=== PATIENT | female | born 1960 | race Caucasian/White ===

== ENCOUNTER 2017-08-08 05:25 | Emergency (ER) | payer BC, OTHER ==
[~2017-08-08] VITALS: Ht 157.5 cm; Wt 62.6 kg
[2017-08-08] MEDS ORDERED: proparacaine 0.5% ophthalmic drops 15ml EACHEYE ONE (06:30)
[2017-08-08] MEDS ORDERED: benoxinate/fluorescein ophth drops 5ml bottle EACHEYE ONE (07:10)
[2017-08-08] MEDS ORDERED: ERYT1OIN6 EACHEYE (07:23)
[2017-08-08] MEDS ORDERED: ibuprofen tablet 400 MG TABLET PO ONE (07:25)
[2017-08-08] MEDS ORDERED: erythromycin ophthalmic ointment 1gm tube EACHEYE ONE (07:25)
[2017-08-08 08:03] VITALS: BP 120/58
== END 2017-08-08 08:07 | disposition home or self-care (01) ==
LOC: ER 05:27
DX: H20.9 Unspecified iridocyclitis (principal); Z88.5 Allergy status to narcotic agent; Z88.0 Allergy status to penicillin
CPT/HCPCS: 99283

== ENCOUNTER 2023-10-23 15:12 | Emergency (ER) | payer BC, MEDICAID ==
[~2023-10-23] VITALS: Ht 157.5 cm; Wt 84.6 kg
[~2023-10-23 15:12] MED LIST: ORPH100T4 PO
[2023-10-23 16:05] LABS: BASOPHILS # (AUTO) 0.1 X10'3 (0-0.2); BASOPHILS % (AUTO) 0.9 % (0-1); EOSINOPHILS # (AUTO) 0.1 X10'3 (0-0.9); HEMATOCRIT 41.7 % (35.0-45.0); HEMOGLOBIN 14.2 g/dl (12.0-16.0); LYMPHOCYTES # (AUTO) 1.1 X10'3 (1.1-4.8); MEAN CORPUSCULAR HEMOGLOBIN 29.5 PG (27.0-31.0); MEAN CORPUSCULAR HGB CONC 34.2 g/dL (33.0-36.5); MEAN CORPUSCULAR VOLUME 86.2 FL (78-98); MONOCYTES # (AUTO) 0.4 X10'3 (0-0.9); MONOCYTES % (AUTO) 3.7 % (2-12); NEUTROPHILS # (AUTO) 9.6 X10'3 (1.8-7.7); NEUTROPHILS % (AUTO) 84.4 % (42-75); PLATELET COUNT 276 X10'3 (140-440); RED BLOOD COUNT 4.83 X10'6 (4.20-5.60); RED CELL DISTRIBUTION WIDTH 14.3 % (11.5-14.5); WHITE BLOOD COUNT 11.4 X10'3 (4.5-11.0)
[2023-10-23 16:10] LABS: ALBUMIN 3.7 G/DL (3.4-5.0); ANION GAP 12 (8-16); BLOOD UREA NITROGEN 13 MG/DL (7-18); BUN/CREATININE RATIO 12.5 (10.0-20.0); CALCIUM 8.8 MG/DL (8.5-10.1); CHLORIDE 98 MMOL/L (99-107); CREATININE 1.04 MG/DL (0.40-0.90); GLUCOSE 188 MG/DL (70-104); SODIUM 138 MMOL/L (135-145); TOTAL CARBON DIOXIDE 27.6 MMOL/L (24-32); eCRCL 43 ML/MIN; eGFR 53 ML/MIN
[2023-10-23 16:14] LABS: POTASSIUM 2.8 MMOL/L (3.5-5.1)
[2023-10-23] MEDS ORDERED: DOXY150T3 PO (17:10)
[2023-10-23] MEDS: acetaminophen 325mg tablet PO ONE (17:57)
[2023-10-23] MEDS: POTASSIUM CHLORIDE 20 MEQ/15 ML oral solution PO SCH (18:00)
[2023-10-23 18:37] VITALS: BP 150/74; PULSE 94; RESP 20; TEMP 100.2; O2SAT 97
== END 2023-10-23 18:41 | disposition home or self-care (01) ==
LOC: ER 15:13
DX: K04.7 Periapical abscess without sinus (principal); Z88.0 Allergy status to penicillin; Z88.5 Allergy status to narcotic agent; Z79.899 Other long term (current) drug therapy
CPT/HCPCS: 36415; 71045; 80048; 83605; 84145; 85025; 87040; 99284